=== PATIENT | female | born 1960 | race American Indian/Alaskan Native ===

== ENCOUNTER 2016-10-24 11:08 | Emergency (ER) | payer MEDICARE ==
[2016-10-24 11:41] VITALS: BP 147/88
[2016-10-24] MEDS ORDERED: ZOFRAN ONE (11:55)
[2016-10-24] MEDS ORDERED: DILAUDID ONE (11:55)
[2016-10-24] MEDS ORDERED: DILAUDID IV ONE ×2 (12:00→14:00)
[2016-10-24] MEDS ORDERED: ZOFRAN IV ONE (12:00)
[2016-10-24 12:29] LABS: Hematocrit 39.9 % (30.3-42.9); Hemoglobin 13.3 gm/dl (10.1-14.3); Mean Corpuscular HGB Conc 33 % (30-34); Mean Corpuscular Hemoglobin 24 pg (28-32); Mean Corpuscular Volume 72 fl (79-97); Platelet Count 424 K/mm3 (140-440); Red Blood Count 5.52 M/mm3 (3.65-5.03); Red Cell Distribution Width 17.5 % (13.2-15.2); White Blood Count 13.3 K/mm3 (4.5-11.0)
[2016-10-24 12:46] LABS: Alanine Aminotransferase 8 units/L (7-56); Albumin 3.7 g/dL (3.9-5); Albumin/Globulin Ratio 0.7 %; Alkaline Phosphatase 125 units/L (35-129); Anion Gap 18 mmol/L; Bilirubin,Total 0.4 mg/dL (0.1-1.2); Blood Urea Nitrogen 8 mg/dL (7-17); Calcium 8.7 mg/dL (8.4-10.2); Carbon Dioxide 23 mmol/L (22-30); Chloride 100.4 mmol/L (98-107); Glucose 110 mg/dL (65-100); Lipase 24 units/L (13-60); Potassium 3.6 mmol/L (3.6-5.0); Sodium 138 mmol/L (137-145); Total Protein 8.7 g/dL (6.3-8.2)
[2016-10-24 12:50] LABS: Bilirubin,Direct < 0.2 mg/dL (0-0.2)
[2016-10-24 12:52] LABS: Bilirubin,Urine NEG (Negative); Blood,Urine SM (Negative); Ketones,Urine NEG (Negative); Leukocyte Esterase,Urine NEG (Negative); Nitrite,Urine NEG (Negative); Urobilinogen,Urine < 2.0 mg/dL (<2.0)
[2016-10-24 12:53] LABS: Protein,Urine >500 mg/dL (Negative)
--- NOTE | 2016-10-24 12:57 | Ultrasound Report ---
RIGHT UPPER QUADRANT ULTRASOUND: HISTORY: Right upper quadrant abdominal pain. Technique: Transabdominal ultrasound imaging with Doppler interrogation. FINDINGS: The gallbladder is sonolucent with no evidence of stones, polyps or wall thickening. The common duct is normal in caliber. Images of the liver parenchyma, pancreas, right kidney and aorta are within normal limits. No perihepatic ascites. IMPRESSION: Unremarkable right upper quadrant ultrasound.
[2016-10-24] MEDS ORDERED: NACL ONE (13:21)
[2016-10-24 13:34] LABS: Basophils % (Manual) 0 % (0.0-1.8); Blastocytes % (Manual) 0 %; Eosinophils % (Manual) 4 % (0.0-4.3)
[2016-10-24 13:35] LABS: Diff Status Complete; Microcytosis Few
--- NOTE | 2016-10-24 14:21 | Cat Scan Report ---
CT SCAN OF THE ABDOMEN AND PELVIS WITH CONTRAST: HISTORY: Abdominal pain. TECHNIQUE: Helical CT in 1.25mm intervals following IV contrast. Sagittal and coronal reconstructions. FINDINGS: The liver is normal in size and is without focal defect. Mild fatty infiltration is noted. No gallstones or biliary dilatation are noted. The spleen and pancreas demonstrate a normal size and attenuation with no evidence of abnormal mass. The kidneys are normal in size and position with no evidence of hydronephrosis or mass. The adrenal glands are normal. There is no intestinal obstruction or ascites. The abdominal aorta is normal caliber. Hysterectomy and appendectomy changes are suspected. There is no evidence of peritoneal air or fluid. There is no evidence of any abnormal masses or fluid collections within the pelvis. No adenopathy is identified. The bladder is normal. Posterior fusion changes in the lumbar spine generate artifact. No acute bony findings. IMPRESSION: No acute abdominal process. Surgical changes as described.
--- NOTE | 2016-10-24 14:25 | Cat Scan Report ---
CT LUMBAR SPINE WITH CONTRAST History: Back pain. Findings: Posterior fusion with disc spacer placement from L4-S1 is noted. The lumbar vertebra are normal height and alignment. There is no evidence for acute fracture, bone lesion or subluxation. Moderate to severe degenerative disc disease and facet arthropathy are noted at L3-4, L4-5 and L5-S1. The neural stimulator enters the spinal canal from the posterior approach near the level of T12-L1 and terminates in the midthoracic spine region. No obvious abnormality is demonstrated. No abnormal enhancement is identified following IV contrast. Impression: Surgical changes as described. Neural stimulator has an unremarkable appearance. Moderate degenerative changes at the lowest 3 levels. No acute process is appreciated.
--- NOTE | 2016-10-24 14:42 | Emergency Department Report ---
HPI - General Chief Complaint: Back Pain/Injury Time Seen by Provider: 10/24/16 11:47 - HPI HPI: Chief complaint: Back pain HPI: Patient is status post fusion of her lumbar spine in January 2016 and placement of a nerve stimulator 09/27/2016 states she's been having increasing back pain radiating to her right flank and right upper quadrant ever since the surgery in September. Patient states she went back to see her painter helper who placed the neurostimulator was given some Percocet but states she is continuing to have severe pain. Patient complains of frequency but no dysuria or fever. No nausea vomiting or diarrhea. Patient was treated in route with fentanyl by EMS with only minimal improvement. Mode of arrival: EMS Source: Patient and nursing notes Began: Long-term back pain exacerbated over the last 2 weeks. Duration: See above Context: See above Quality: Sharp Severity: 7 out of 10 Improved with: Nothing Worsened with: Movement Associated signs and symptoms: See above ED Past Medical Hx - Past Medical History Previous Medical History?: Yes Hx Hypertension: Yes Hx Diabetes: Yes Hx Arthritis: Yes (lower back) Additional medical history: Neuropathy and fibromyalgia. Brain aneurysm - Surgical History Past Surgical History?: Yes Additional Surgical History: Hysterectomy. 10/10 thyroid removed per pt. left oopherectomy. Coiled brain aneurysm (2011). Spinal surgery () - Social History Smoking Status: Current Every Day Smoker Substance Use Type: None - Medications Home Medications: Home Medications Medication Instructions Recorded Confirmed Last Taken Type Aspirin EC [Aspirin Enteric Coated 81 mg PO QDAY 05/21/15 11/11/15 Unknown History TAB] AtorvaSTATin [Lipitor] 20 mg PO QHS 05/21/15 11/11/15 Unknown History Gabapentin [Neurontin] 600 mg PO Q8H 05/21/15 11/11/15 Unknown History Ibuprofen [Motrin 600 MG tab] 600 mg PO Q8H PRN 05/21/15 11/11/15 Unknown History Naproxen [Naprosyn TAB] 500 mg PO BID 05/21/15 11/11/15 Unknown History Ondansetron [Zofran Odt] 4 mg PO TID 05/21/15 11/11/15 11/11/15 History amLODIPine [Norvasc] 10 mg PO DAILY 05/21/15 11/11/15 11/11/15 History glipiZIDE [Glucotrol] 10 mg PO BID 05/21/15 11/11/15 11/11/15 History hydrALAZINE [Apresoline TAB] 25 mg PO Q8HR 05/21/15 11/11/15 11/11/15 History metFORMIN [Glucophage] 500 mg PO BID 05/21/15 11/11/15 11/11/15 History Acetaminophen/Codeine 1 tab PO Q6H PRN #15 tab 08/16/15 11/11/15 Unknown Rx [Acetaminophen-Codeine #3 TAB] methOCARBAMOL [Robaxin TAB] 500 mg PO BID #20 tab 08/16/15 11/11/15 Unknown Rx Oxycodone HCl/Acetaminophen 1 each PO Q6HR PRN #7 tablet 10/24/16 Unknown Rx [Percocet 10/325 mg] ED Review of Systems ROS: Stated complaint: BACK PAIN Other details as noted in HPI ROS Constitutional: No fever ENT: No uri symptoms Cardiovascular: No chest pain Respiratory: No sob or cough GI: No nausea vomiting or diarrhea : No dysuria frequency or urgency, Skin: No rash Neuro: No focal weakness or numbness Psych: No depression Douglas/lymph: No edema Physical Exam - Physical Exam Vital Signs: Vital Signs 10/24/16 10/24/16 10/24/16 11:12 11:40 12:46 Temperature 98.5 F Pulse Rate 110 H 81 Respiratory 22 24 Rate Blood Pressure 147/88 [Right] O2 Sat by Pulse 97 100 100 Oximetry Physical Exam: GENERAL: The patient is an obese -Irish female complaining of back pain. Patient is tearful. HEENT: Normocephalic. Atraumatic. Extraocular motions are intact. Patient has moist mucous membranes. NECK: Supple. No meningitic signs are noted. There is no adenopathy noted. CHEST/LUNGS: Clear to auscultation. There is no respiratory distress noted. HEART/CARDIOVASCULAR: Regular. There is no tachycardia. There is no gallop rub or murmur. ABDOMEN: Abdomen is soft, right upper quadrant tenderness. There is no rebound or guarding. Patient has normal bowel sounds. There is no abdominal distention. SKIN: There is no rash. There is no edema. There is no diaphoresis. NEURO: The patient is awake, alert, and oriented. The patient is cooperative. The patient has no focal neurologic deficits. The patient has normal speech. MUSCULOSKELETAL: Patient with several scars her lower lumbar spine consistent with previous surgeries. There is no swelling or erythema or evidence of infection. Patient is tender distal to the most recent surgery and her lower lumbar spine area and her right flank and right upper quadrant. ED Course Vital Signs 10/24/16 10/24/16 10/24/16 11:12 11:40 12:46 Temperature 98.5 F Pulse Rate 110 H 81 Respiratory 22 24 Rate Blood Pressure 147/88 [Right] O2 Sat by Pulse 97 100 100 Oximetry - Reevaluation(s) Reevaluation #1: 10/24/16 Patient medicated with a total of 2 mg of IV Dilaudid with improvement of her pain. All tests were negative showing no infection or acute abdominal process or acute lumbar process. Patient strongly urged follow-up with her pain management doctor and counseled on the problems of chronic narcotic use creating a situation of resistance to narcotic pain medicine. Patient will follow up with her pain management physicians. Patient states she has one Percocet left and was given a prescription for 7 more. ED Medical Decision Making - Lab Data Result diagrams: 10/24/16 12:15 10/24/16 12:15 Laboratory Tests 10/24/16 10/24/16 12:13 12:15 Total Protein 8.7 H Albumin 3.7 L Lipase 24 Ur Specific Avery 1.009 Urine Protein >500 Urine Glucose (UA) 50 Urine Ketones Neg Urine Blood Sm Urine Nitrite Neg Urine Bilirubin Neg Urine Urobilinogen < 2.0 Ur Leukocyte Esterase Neg Urine WBC (Auto) 6.0 Urine RBC (Auto) 1.0 - Radiology Data Radiology results: report reviewed (CT of the abdomen and pelvis and lumbar spine show no acute process. Changes surgery present to her lumbar spine. Gallbladder ultrasound is negative.) Critical care attestation.: If time is entered above; I have spent that time in minutes in the direct care of this critically ill patient, excluding procedure time. ED Disposition Clinical Impression: Acute exacerbation of chronic low back pain Disposition: DISCHARGED TO HOME OR SELFCARE Is pt being admited?: No Does the pt Need Aspirin: No Condition: Stable Prescriptions: Oxycodone HCl/Acetaminophen [Percocet 10/325 mg] 1 each PO Q6HR PRN #7 tablet PRN Reason: Pain Referrals: [facility] [Other] - 3-5 Days Time of Disposition: 14:35
[2016-10-24 23:59] LABS: Bilirubin,Indirect 0.2 mg/dL
== END 2016-10-24 15:21 | disposition home or self-care (01) ==
LOC: ED 11:08
DX: M54.5 Low back pain (principal); G89.29 Other chronic pain; I10 Essential (primary) hypertension; E11.9 Type 2 diabetes mellitus without complications; M19.90 Unspecified osteoarthritis, unspecified site; F17.200 Nicotine dependence, unspecified, uncomplicated; Z90.710 Acquired absence of both cervix and uterus; Z90.89 Acquired absence of other organs; Z79.82 Long term (current) use of aspirin
CPT/HCPCS: 36415; 72132; 74177; 76705; 80048; 80074; 81001; 82962; 83690; 85007; 85025; 96374; 96375; 96376; 99284; J1170; J2405; Q9967